=== PATIENT | female | born 1985 | race Caucasian/White ===

== ENCOUNTER 2018-05-16 10:26 | Emergency (ER) | payer OTHER, MEDICAID ==
[~2018-05-16] VITALS: Ht 160 cm; Wt 72.7 kg
[~2018-05-16 10:26] MED LIST: DIPH-681 PO
[2018-05-16 10:31] VITALS: BP 126/72
== END 2018-05-16 11:55 | disposition home or self-care (01) ==
LOC: ER 10:27
DX: R53.1 Weakness (principal); M40.40 Postural lordosis, site unspecified; Z88.0 Allergy status to penicillin; Z88.1 Allergy status to other antibiotic agents; Z79.899 Other long term (current) drug therapy; V89.2XXA Person injured in unspecified motor-vehicle accident, traffic, initial encounter; Y93.89 Activity, other specified; Y92.89 Other specified places as the place of occurrence of the external cause; Y99.8 Other external cause status
CPT/HCPCS: 72040; 73030; 99284

== ENCOUNTER 2019-12-09 17:24 | Emergency (ER) | payer MEDICAID, OTHER ==
[~2019-12-09] VITALS: Ht 157.5 cm; Wt 84.0 kg
[2019-12-09 17:30] VITALS: BP 107/77
[2019-12-09] MEDS ORDERED: HYDR-3965 PO (18:29)
[2019-12-09] MEDS ORDERED: HYDROcodone/acetaminophen 10/325mg tab PO ONE (18:30)
[2019-12-09] MEDS ORDERED: ketorolac tromethamine 15mg/ml inj. IM ONE (18:30)
== END 2019-12-09 18:56 | disposition home or self-care (01) ==
LOC: ER 17:24
DX: M25.512 Pain in left shoulder (principal); Z88.0 Allergy status to penicillin; Z79.2 Long term (current) use of antibiotics; Z88.8 Allergy status to other drugs, medicaments and biological substances; Z79.899 Other long term (current) drug therapy; W19.XXXA Unspecified fall, initial encounter; Y93.89 Activity, other specified; Y92.89 Other specified places as the place of occurrence of the external cause; Y99.8 Other external cause status
CPT/HCPCS: 73030; 96372; 99284; J1885

== ENCOUNTER 2023-07-10 12:31 | Emergency (ER) | payer MEDICAID, OTHER ==
[~2023-07-10] VITALS: Ht 157.5 cm; Wt 90.7 kg
--- NOTE | 2023-07-10 13:54 | NUR ---
MSE COMPLETED BY FABRICIO STARKEY.
[2023-07-10 14:00] VITALS: BP 126/88; PULSE 65; RESP 17; TEMP 98; O2SAT 99
--- NOTE | 2023-07-10 21:57 | NUR ---
I have reviewed and agree with all interventions, assessments performed and documented by LOGGING WORKER
--- NOTE | 2023-07-10 22:06 | NUR ---
SPLINTING DONE BY JENI MCFARLAND.
== END 2023-07-10 22:07 | disposition home or self-care (01) ==
LOC: ER 12:32
DX: S62.001A Unspecified fracture of navicular [scaphoid] bone of right wrist, initial encounter for closed fracture (principal); W19.XXXA Unspecified fall, initial encounter; Y93.89 Activity, other specified; Y92.89 Other specified places as the place of occurrence of the external cause; Y99.8 Other external cause status
CPT/HCPCS: 29125; 73130; 99283

== ENCOUNTER 2024-01-02 20:16 | Emergency (ER) | payer OTHER ==
[~2024-01-02] VITALS: Ht 157.5 cm; Wt 92.7 kg
[2024-01-02] MEDS: metoclopramide 5 mg/ml inj IV ONE (20:50)
[2024-01-02] MEDS: diphenhydrAMINE 50 mg/ml inj IV ONE (20:50)
[2024-01-02] MEDS ORDERED: iohexol 350MG/ML 100ml bottle IV ONE (21:18)
[2024-01-02 21:31] LABS: BASOPHILS # (AUTO) 0.2 X10'3 (0-0.2); BASOPHILS % (AUTO) 1.6 % (0-1); EOSINOPHILS # (AUTO) 0.2 X10'3 (0-0.9); EOSINOPHILS % (AUTO) 2.4 % (0-6); HEMATOCRIT 43.9 % (35.0-45.0); HEMOGLOBIN 14.8 g/dl (12.0-16.0); LYMPHOCYTES # (AUTO) 2.9 X10'3 (1.1-4.8); MEAN CORPUSCULAR HEMOGLOBIN 30.4 PG (27.0-31.0); MEAN CORPUSCULAR HGB CONC 33.7 g/dL (33.0-36.5); MEAN CORPUSCULAR VOLUME 90.4 FL (78-98); MEAN PLATELET VOLUME 7.3 FL (7.4-10.4); MONOCYTES # (AUTO) 0.7 X10'3 (0-0.9); MONOCYTES % (AUTO) 7.2 % (2-12); NEUTROPHILS # (AUTO) 5.7 X10'3 (1.8-7.7); NEUTROPHILS % (AUTO) 58.8 % (42-75); PLATELET COUNT 305 X10'3 (140-440); RED BLOOD COUNT 4.86 X10'6 (4.20-5.60); RED CELL DISTRIBUTION WIDTH 14.2 % (11.5-14.5); WHITE BLOOD COUNT 9.7 X10'3 (4.5-11.0)
[2024-01-02 21:44] LABS: APTT 24 SECONDS (22-32); INR 0.9 INR; PROTHROMBIN TIME 10.1 SECONDS (9.0-12.0)
[2024-01-02 21:46] LABS: ANION GAP 8 (8-16); BLOOD UREA NITROGEN 8 MG/DL (7-18); CHLORIDE 105 MMOL/L (99-107); CREATININE 0.73 MG/DL (0.40-0.90); GLUCOSE 100 MG/DL (70-104); POTASSIUM 3.4 MMOL/L (3.5-5.1); SODIUM 138 MMOL/L (135-145); TOTAL CARBON DIOXIDE 25.4 MMOL/L (24-32)
[2024-01-02 21:47] LABS: ALANINE AMINOTRANSFERASE 18 U/L (12-78); ALBUMIN 3.6 G/DL (3.4-5.0); ALBUMIN/GLOBULIN RATIO 1.1 (1.1-1.5); ALKALINE PHOSPHATASE 82 IU/L (46-116); ASPARTATE AMINO TRANSFERASE 7 U/L (10-37); BILIRUBIN,TOTAL 0.3 MG/DL (0.1-1.0); CALCIUM 8.4 MG/DL (8.5-10.1); eCRCL 82 ML/MIN; eGFR 89 ML/MIN
[2024-01-02 21:50] LABS: HCG SERUM QL NEGATIVE
[2024-01-02] MEDS: ondansetron/PF 4mg/2ml inj IV ONE (22:22)
[2024-01-02] MEDS: HYDROcodone/acetaminophen 5mg/325mg tablet PO ONE (22:23)
[2024-01-02 22:40] VITALS: BP 156/101; PULSE 79; O2SAT 99
[2024-01-02] MEDS: dexamethasone sod phosphate 10mg/ml inj IV STA (23:32)
[2024-01-02] MEDS ORDERED: ketorolac trometh. 30mg/ml inj. IV ONE (23:40)
[2024-01-02] MEDS ORDERED: ONDA4TAB12 PO (23:43)
[2024-01-02 23:44] VITALS: RESP 15
[2024-01-02] MEDS: ketorolac tromethamine 15mg/ml inj. IV ONE (23:44)
[2024-01-02 23:51] VITALS: TEMP 98.6
== END 2024-01-03 00:10 | disposition home or self-care (01) ==
LOC: ER 20:17
DX: G43.909 Migraine, unspecified, not intractable, without status migrainosus (principal); R79.1 Abnormal coagulation profile; Z88.1 Allergy status to other antibiotic agents; Z88.0 Allergy status to penicillin; Z79.899 Other long term (current) drug therapy
CPT/HCPCS: 36415; 70450; 70496; 70498; 80053; 84703; 85025; 85610; 85730; 96374; 96375; 99285; J1100; J1885; J2405; J3490; Q9967

== ENCOUNTER 2024-10-05 01:12 | Emergency (ER) | payer MEDICAID ==
[~2024-10-05] VITALS: Ht 157.5 cm; Wt 92.0 kg
[~2024-10-05 01:12] MED LIST changes: +ONDA-243 PO
[2024-10-05] MEDS: ondansetron/PF 4mg/2ml inj IV ONE (01:48)
[2024-10-05] MEDS: acetaminophen 1,000mg/100ml IV 100 ML IV ONE (01:49)
[2024-10-05] MEDS: normal saline 1000ml 1,000 ML IV ONE (01:49)
[2024-10-05 01:57] LABS: BASOPHILS # (AUTO) 0.1 X10'3 (0-0.2); BASOPHILS % (AUTO) 0.6 % (0-1); EOSINOPHILS % (AUTO) 0 % (0-6); HEMATOCRIT 44.8 % (35.0-45.0); HEMOGLOBIN 15.5 g/dl (12.0-16.0); LYMPHOCYTES # (AUTO) 0.3 X10'3 (1.1-4.8); LYMPHOCYTES % (AUTO) 2.7 % (21-51); MEAN CORPUSCULAR HEMOGLOBIN 30.8 PG (27.0-31.0); MEAN CORPUSCULAR HGB CONC 34.5 g/dL (33.0-36.5); MEAN CORPUSCULAR VOLUME 89.3 FL (78-98); MEAN PLATELET VOLUME 7.5 FL (7.4-10.4); MONOCYTES # (AUTO) 0.5 X10'3 (0-0.9); MONOCYTES % (AUTO) 4.4 % (2-12); NEUTROPHILS # (AUTO) 9.8 X10'3 (1.8-7.7); NEUTROPHILS % (AUTO) 92.3 % (42-75); PLATELET COUNT 322 X10'3 (140-440); RED BLOOD COUNT 5.02 X10'6 (4.20-5.60); RED CELL DISTRIBUTION WIDTH 14.2 % (11.5-14.5); WHITE BLOOD COUNT 10.6 X10'3 (4.5-11.0)
[2024-10-05 02:44] LABS: ALANINE AMINOTRANSFERASE 41 U/L (12-78); ALBUMIN 4.2 G/DL (3.4-5.0); ALKALINE PHOSPHATASE 115 IU/L (46-116); ANION GAP 14 (8-16); ASPARTATE AMINO TRANSFERASE 18 U/L (10-37); BILIRUBIN,TOTAL 0.5 MG/DL (0.1-1.0); BLOOD UREA NITROGEN 5 MG/DL (7-18); CALCIUM 9.3 MG/DL (8.5-10.1); CHLORIDE 102 MMOL/L (99-107); CREATININE 0.84 MG/DL (0.40-0.90); GLUCOSE 129 MG/DL (70-104); LIPASE 18 U/L (16-77); POTASSIUM 3.2 MMOL/L (3.5-5.1); SODIUM 138 MMOL/L (135-145); TOTAL CARBON DIOXIDE 22.4 MMOL/L (24-32); TOTAL PROTEIN 8.5 G/DL (6.4-8.2); eCRCL 70 ML/MIN; eGFR 75 ML/MIN
[2024-10-05] MEDS ORDERED: CLIN150C2 PO (02:54)
[2024-10-05] MEDS ORDERED: ONDA-245 PO (02:54)
[2024-10-05] MEDS: clindamycin 150mg capsule PO ONE (03:00)
[2024-10-05] MEDS: ketorolac trometh 15mg/ml vial 15 MG/ML ML IV ONE (03:01)
[2024-10-05 03:15] LABS: BILIRUBIN,URINE NEGATIVE (Neg); CLARITY,URINE CLEAR (Clear); COLOR,URINE YELLOW (Yellow); GLUCOSE, URINE NEGATIVE (Neg); KETONES,URINE 40 mg/dl (Neg); LEUKOCYTE ESTERASE ,URINE NEGATIVE (Neg); NITRITES, URINE NEGATIVE (Neg); OCCULT BLOOD,URINE TRACE-INTACT (Neg); PH,URINE 5.5 (4.8-8.0); PROTEIN,URINE NEGATIVE (Neg); UROBILINOGEN,URINE 0.2 E.U/dL (0.2-1.0)
[2024-10-05 03:16] LABS: URINE HCG NEGATIVE (NEG)
[2024-10-05 03:20] LABS: BACTERIA,URINE FEW /HPF (Neg); MUCUS STRANDS FEW /LPF (Neg); RBC,URINE 0-2 /HPF (0-2); SQUAMOUS EPITHELIAL CELL,UR FEW /LPF (FEW); UA COLLECTION TYPE CLN CATCH MIDSTREAM; WBC,URINE 0-4 /HPF (0-4)
[2024-10-05 03:46] VITALS: BP 145/121; PULSE 74; TEMP 98.3; O2SAT 98
[2024-10-05 03:50] VITALS: RESP 16
[2024-10-05] MEDS: potassium Cl 20 mEq SR tablet PO STA (03:50)
== END 2024-10-05 03:51 | disposition home or self-care (01) ==
LOC: ER 01:14
DX: R11.2 Nausea with vomiting, unspecified (principal); Z20.822 Contact with and (suspected) exposure to COVID-19; H66.91 Otitis media, unspecified, right ear; Z88.0 Allergy status to penicillin; Z88.1 Allergy status to other antibiotic agents; Z88.8 Allergy status to other drugs, medicaments and biological substances; Z79.899 Other long term (current) drug therapy
CPT/HCPCS: 36415; 80053; 81001; 81025; 83690; 85025; 87811; 96365; 96375; 99284; J0131; J1885; J2405; J7030